=== PATIENT | male | born 1945 ===

== ENCOUNTER 2024-04-08 07:58 | Outpatient (AMB) | payer MEDICARE, SELFPAY ==
--- OUTSIDE RECORDS SUMMARY | 2024-04-08 08:00 | XMS_ITS ---
Author Name [facility] Organization Unknown History of Medication Use Medication Directions Dispensed Refills Start Date End Date Stat lidocaine (PF) 100 mg/5 mL (2 %) injection syringe 01/30/2024 9 active triamcinolone acetonide 40 mg/mL suspension for injection 01/30/2024 9 active nystatin 100,000 unit/gram topical ointment APPLY TO AFFECTED AREA TWICE A DAY 01/30/2024 9 completed indomethacin 25 mg capsule TAKE 1 CAPSULE BY MOUTH THREE TIMES A DAY 01/30/2024 9 active lisinopril (PRINIVIL,ZESTRIL) tablet 10 mg Take 1 tablet (10 mg total) by mouth daily. 09/30/2023 active vitamin C (ASCORBIC ACID) 500 MG tablet Take 1 tablet (500 mg total) by mouth daily. 09/30/2023 active ibuprofen 200 MG tablet Take 2 tablets (400 mg total) by mouth every 6 (six) hours as needed for pain. 09/30/2023 active aspirin EC 81 MG tablet Take 1 tablet (81 mg total) by mouth daily. 09/30/2023 active metoprolol succinate (TOPROL-XL) 24 hr tablet 25 mg TAKE 1 TABLET ONCE A DAY 09/30/2023 active indomethacin (INDOCIN) 25 MG capsule Take 1 capsule (25 mg total) by mouth 3 (three) times a day with meals. 09/30/2023 active tamsulosin (FLOMAX) 0.4 MG CAPS Take 1 capsule (0.4 mg total) by mouth daily. 09/30/2023 active sildenafil (VIAGRA) 100 MG tablet Take 1 tablet (100 mg total) by mouth daily. 09/30/2023 aborted diazePAM (VALIUM) tablet 5 mg Take 1 tablet (5 mg total) by mouth daily as needed for anxiety (1 hour preprocedure, needs chuck wagon driver.). 09/30/2023 active Multiple Vitamins-Minerals (One-A-Day Mens 50+) TABS Take 1 tablet by mouth daily. 09/30/2023 active atorvastatin (LIPITOR) tablet 40 mg Take 1 tablet (40 mg total) by mouth daily. 09/30/2023 active lisinopril 10 mg tablet TAKE 1 TABLET BY MOUTH EVERY DAY (LAST REFILL--PT NEEDS APPOINTMENT PER MD) 08/22/2023 active cephalexin 500 mg capsule TAKE 1 CAPSULE BY MOUTH TWICE A DAY 08/22/2023 active halobetasol propionate 0.05 % topical cream APPLY AFFECTED AREA TWICE A DAY NEEDED. DO NOT USE MORE THAN 14 DAYS AT A TIME 08/22/2023 active amoxicillin 500 mg capsule TAKE 1 CAPSULE BY MOUTH 3 TIMES A DAY UNTIL FINISHED 08/22/2023 active triamcinolone acetonide 40 mg/mL suspension for injection Take 80 mg by injection route. 08/22/2023 active diazepam 5 mg tablet PLEASE SEE ATTACHED FOR DETAILED DIRECTIONS 08/22/2023 active ketoconazole 2 % shampoo PLEASE SEE ATTACHED FOR DETAILED DIRECTIONS 08/22/2023 active hydrocodone 5 mg-acetaminophen 325 mg tablet TAKE 1 TABLET BY MOUTH EVERY 4 TO 6 HOURS NEEDED 08/22/2023 active metoprolol succinate ER 25 mg tablet,extended release 24 hr TAKE 1 TABLET BY MOUTH EVERY DAY (LAST REFILL NEEDS APPT) 08/22/2023 active amoxicillin 875 mg tablet TAKE 1 TABLET BY MOUTH EVERY 12 HOURS UNTIL FINISHED 08/22/2023 active hydrocortisone 2.5 % topical cream with perineal applicator APPLY AFFECTED AREA TWICE A DAY FOR 7 DAYS 08/22/2023 active hydrocortisone acetate 25 mg rectal suppository INSERT 1 SUPPOSITORY TWO TIMES A DAY NEEDED 08/22/2023 active betamethasone valerate 0.1 % topical cream APPLY AFFECTED AREA 3 TIMES A DAY NEEDED FOR RASH 08/22/2023 active atorvastatin 40 mg tablet TAKE 1 TABLET BY MOUTH EVERY DAY 08/22/2023 active sildenafil 100 mg tablet TAKE 1 TABLET BY MOUTH EVERY DAY 08/22/2023 active meloxicam 15 mg tablet TAKE 1 TABLET (15 MG) BY MOUTH EVERY DAY 08/22/2023 active tamsulosin 0.4 mg capsule TAKE 1 CAPSULE BY MOUTH EVERY DAY 08/22/2023 active atorvastatin (LIPITOR) 40 MG tablet Take 1 tablet (40 mg total) by mouth daily. 09/10/2022 active aspirin 81 MG chewable tablet Chew 1 tablet (81 mg total) daily. 09/10/2022 active diazepam (VALIUM) 5 MG tablet Take 1 tablet (5 mg total) by mouth nightly as needed. 11/11/2022 active vitamin E 100 UNIT capsule Take 1 capsule (100 Units total) by mouth daily. 09/10/2022 active Ascorbic Acid (VITAMIN C) 100 MG tablet Take 1 tablet (100 mg total) by mouth daily. 09/10/2022 active Kenalog 40 mg/mL suspension for injection Take 1 mL by injection route. 08/27/2022 active lisinopril (PRINIVIL,ZeSTRIL) 10 MG tablet Take 1 tablet (10 mg total) by mouth daily. 09/10/2022 active tiZANidine (ZANAFLEX) 4 MG tablet Take 1 tablet (4 mg total) by mouth daily. 09/10/2022 active nfrqya-jhqdygkra-pyv nesium sulfates (SUPREP BOWEL PREP KIT) 17.5-3.13-1.6 GM/177ML Solution solution Take two 177 mL bottles as directed 09/10/2022 aborted Ascorbic Acid (VITAMIN C) 100 MG tablet Take 1 tablet (100 mg total) by mouth daily. 09/10/2022 active metoPROLOL SUCCINATE (TOPROL-XL) 25 MG 24 hr tablet Take 1 tablet (25 mg total) by mouth daily. 09/10/2022 active lidocaine (PF) 100 mg/5 mL (2 %) injection syringe Take 2 mL by injection route. 08/27/2022 active multivitamin (multivitamin) Tab tablet Take 1 tablet by mouth daily. 09/10/2022 active tamsulosin (FLOMAX) 0.4 MG capsule Take 1 capsule (0.4 mg total) by mouth daily. 11/11/2022 active Problems Problem Status Onset Date Problem Type Date of Resoluti on Source Osteoarthritis of left knee joint active 2022-08-24 ProblemAct [facility] Pain of bilateral knee joints active 2022-08-24 ProblemAct [facility] Acute medial meniscus tear of left knee active 2017-02-20 ProblemAct [facility] Primary localized osteoarthrosis of left lower leg active 2018-05-21 ProblemAct [facility] Chronic right shoulder pain active 2021-08-18 ProblemAct [facility] Complete tear of left rotator cuff active 2021-08-18 ProblemAct [facility] Claudication active 2022-11-09 ProblemAct [facility] Tobacco use active 2022-11-09 ProblemAct [facility] Hypertension active 2022-11-01 ProblemAct [facility] Takotsubo cardiomyopathy active 2022-11-09 ProblemAct [facility] Osteoarthritis of right knee joint active 2022-08-24 ProblemAct [facility] Inguinal mass active 2014-12-15 ProblemAct [facility] Screening for colon cancer active 2019-02-03 ProblemAct [facility] Primary gonarthrosis, bilateral active 2024-01-28 ProblemAct [facility] High cholesterol active 2022-11-01 ProblemAct [facility] Bilateral iliac artery aneurysm active 2023-02-19 ProblemAct [facility] Dyslipidemia active 2023-02-19 [facility]Act [facility] NSTEMI (non-ST elevated myocardial infarction) active 2022-11-01 [facility]Act [facility]
[2024-04-08 08:08] VITALS: BP 128/72; PULSE 60; TEMP 36.6; O2SAT 96; BMI 23.9
--- NOTE | 2024-04-08 08:08 | AM.OFFWIN_ITS ---
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 Intake Note: pt is here for left foot laceration, possible infection Patient Tobacco Use Status: Current everyday Tobacco user Accompanied by: Self / Same As Patient Allergies No Known Allergies Allergy (Verified 04/08/24 08:15) Do you need a note to return to daycare/school/sports/work: No HPI HPI Comments History of Present Illness Details Patient is a 78yo M who presents for L posterior calf wound Initially injured it three weeks ago after scratching himself when pulling up his socks He said 3 scabs formed Has been getting more red around it No pain at rest, 0/10 + tenderness with palpation + edema in the morning No fever, chills or discharge Using topical neosporin without relief PFSH Social History Patient Tobacco Use Status: Current everyday Tobacco user Review of Systems Const Denies chills and Denies fever(s) Musc Denies back pain, Denies joint swelling and Reports other (L posterior calf pain to palpation over wounds) Skin/Breast Reports erythema and Reports wounds Physical Exam Vital Signs: Last Vital Signs Temp 97.9 F 04/08/24 08:08 Pulse 60 04/08/24 08:08 BP 128/72 04/08/24 08:08 Pulse Ox 96 04/08/24 08:08 Oxygen Delivery Method Room Air 04/08/24 08:08 BMI result Body Mass Index 23.9 General: Non-toxic, NAD. Speaking full sentences. Skin: Warm dry throughout L poterior lower calf has 3 circular scabs withour schar or wound dehiscence. + erythema surrunding without warmth. No drainage. . Respiratory: No respiratory distress MSK: Full ROM extremities. Neurology: Alert. No aphasia or facial droop. Gait without abnormality Psych: Good mood and affect Assessment & Plan Assessment & Plan (1) Cellulitis: Code(s): L03.90 - Cellulitis, unspecified Qualifiers: Laterality: left Site of cellulitis: extremity Site of cellulitis of extremity: lower extremity Qualified Code(s): L03.116 - Cellulitis of left lower limb Plan: Patient seen and evaluated. Keflex with food Discussed wound care Avoid scratching Patient gave verbal understanding and had no additional questions or concerns at time of discharge All questions answered Medications: New cephalexin 500 mg PO BID 14 caps 0RF Coding Level of Care Code New Pt Level 3 (58369) Diagnoses Cellulitis of left lower extremity L03.116 Laterality: left Site of cellulitis: extremity Site of cellulitis of extremity: lower extremity
== END 2024-04-08 08:29 | disposition home or self-care (01) ==
PROVIDERS: Visit Provider Physician Assistant
DX: L03.116 Cellulitis of left lower limb (principal)

== ENCOUNTER → 2024-04-08 07:58 | Outpatient (BNVA) | payer MEDICARE, SELFPAY | PROVIDERS: Visit Provider Physician Assistant | DX: S81.812D Laceration without foreign body, left lower leg, subsequent encounter (principal); L03.116 Cellulitis of left lower limb; X58.XXXD Exposure to other specified factors, subsequent encounter | CPT/HCPCS: 99202 ==

== ENCOUNTER 2025-02-06 08:35 | Outpatient (AMB) | payer MEDICARE, SELFPAY ==
[2025-02-06 08:37] VITALS: BP 158/80; PULSE 62; TEMP 36.3; O2SAT 97; BMI 23.7
--- NOTE | 2025-02-06 08:37 | AM.OFFWIN_ITS ---
Intake Vital Signs 02/06/25 08:37 Height 5 ft 6 in Weight 147 lb BMI 23.7 BP 158/80 H Blood Pressure Location Lt brachial Position Sitting Pulse 62 Pulse Source Pulse Oximeter Temp 97.4 F Temp Source Oral Pulse Oximetry (%) 97 Oxygen Delivery Method Room Air Comment High BP; pt reports not taking his BP meds yet today. Provider notified. Intake Visit Reasons: ep left leg cut and may be infected Intake Note: pt presents with painful and slow healing wound on left lower leg from scraping right shoe 3 wks ago Patient Tobacco Use Status: Current everyday Tobacco user Allergies No Known Allergies Allergy (Verified 02/06/25 08:42) Do you need a note to return to daycare/school/sports/work: No HPI ep left leg cut and may be infected HPI Details This is a 79 year old male patient who presents to the [place] clinic today with a reported infected scrape on his left lower leg. He states this happened about 2-3 weeks ago when the heel of his other shoe scraped the front of his leg. He has been trying to keep area clean and has applied some liquid bandage. He denies any fevers/chills. He reports having some clear drainage from area a couple of days ago, however nothing today. Reports it is sore. [facility] Social History Patient Tobacco Use Status: Current everyday Tobacco user Review of Systems Const All systems reviewed & are unremarkable except as noted in HPI and below Physical Exam Vital Signs: Last Vital Signs Temp 97.4 F 02/06/25 08:37 Pulse 62 02/06/25 08:37 Pulse Ox 97 02/06/25 08:37 Oxygen Delivery Method Room Air 02/06/25 08:37 BMI result Body Mass Index 23.7 Const General: cooperative, healthy appearing, comfortable and no acute distress Resp Effort & Inspection: normal respiratory effort Cardio Rate: regular rate Rhythm: regular rhythm Skin Other: round scab on anterior left lower leg, approx 2x3cm, with surrounding erythema. No drainage noted. tender to palpation. Extrem General: Yes capillary refill normal and Yes no clubbing, cyanosis or edema Psych Appearance: grossly normal Mental Status: mental status grossly normal Speech and movement: Normal speech and movement present Assessment & Plan Assessment & Plan (1) Cellulitis of left anterior lower leg: Code(s): L03.116 - Cellulitis of left lower limb Plan: Started on Cephalexin - has done well on this previously for similar infection. We reviewed indications, use, possible side effects of this. Advised to keep area clean/dry. Advised to return to the clinic if he does not improve with treatment, or if area of begins to have worsening pain, drainage, redness, or if he develops fevers/chills. BP was noted to be elevated today, patient states he has not taken his morning blood pressure medications yet. Advised to take them when he gets home, which he agrees to. All questions were answered and patient verbalizes understanding and agrees to plan as discussed today. Medications: Refilled cephalexin 500 mg PO BID 14 caps 0RF L03.116 - Cellulitis of left lower limb Coding Level of Care Code Est Pt Level 4 (30119) Diagnoses Cellulitis of left anterior lower leg L03.116
--- OUTSIDE RECORDS SUMMARY | 2025-02-06 09:07 | XMS_ITS | Encounter Summary ---
Author Organization [facility] Address [address] [place] [id number] Care Team Providers Care Timing Inspector Name Role Phone Abebe Johnson MD Primary Care Provider Nettie Aponte PA-C Primary Care Provi alex Jemal Kramer MD Unavailable [phone] Encounter Details Date Type Department Care Team ([facility] st Contact Info) Description 03/01/2023 Scanned Document [facility] [place] [address] [id number] Jemal Kramer MD [address] [place] [id number] Social History Tobacco Use Types Packs/Day Years Used Date Smoking Tobacco: Every Day Smokeless Tobacco: Never Alcohol Use Standard Drinks/Week Comments Yes 6 (1 standard drink = 0.6 oz pur e alcohol) Sex and Gender Information Value Date Recorded Sex Assigned at Not on file Legal Sex Male 7:52 PM EDT Gender Identity Not on file Sexual Orientation Not on file documented as of this encounter Plan of Treatment Not on file documented as of this encounter Visit Diagnoses Not on filedocumented in this encounter Care Teams Timing Inspector Relationship Specialty Start Date End Date Abebe Johnson MD [address] [place] [id number] PCP - General 10/24/18 07/02/24 Nettie Aponte PA-C [address] [place] [address] PCP - General Internal Medicine 07/03/24 Jemal Kramer MD [address] [place] [address] Consulting Provider Cardiovascular Disease 09/19/24 documented as of this encounter
--- OUTSIDE RECORDS SUMMARY | 2025-02-06 09:07 | XMS_ITS | Encounter Summary ---
Author Organization [facility] Address [address] [place] [address] Care Team Providers Care Media Relations Specialist Name Role Phone Abebe Johnson MD Primary Care Provider Nettie Aponte PA-C Primary Care Provi alex Jemal Kramer MD Unavailable [phone] Encounter Details Date Type Department Care Team (Late st Contact Info) Description 03/08/2023 Scanned Document [facility] [place] [address] [id number] Provider, MD [address] [place] [address] Social History Tobacco Use Types Packs/Day Years [...] on filedocumented in this encounter Care Teams Media Relations Specialist Relationship Specialty Start Date End Date Abebe Johnson MD [address] [place] [address] PCP - General 10/24/18 07/02/24 Nettie Aponte PA-C [address] [place] [address] PCP - General Internal Medicine 07/03/24 Jemal Kramer MD [address] [place] [id number] Consulting Provider Cardiovascular Disease 09/19/24 documented as of this encounter
--- OUTSIDE RECORDS SUMMARY | 2025-02-06 09:07 | XMS_ITS | Clinical Summary ---
Author Organization [facility] Address [address] [place] [address] Care Team Providers Care Diagnostic Radiologist Name Role Phone Abebe Johnson MD Primary Care Provider [phone] Allergies No known active allergies Medications Medication Sig Dispensed Refills Start Date End Date Status vitamin C (ASCORBIC ACID) 500 MG tablet Take 1 tablet (500 mg total) by mouth daily. 0 Active lisinopril (PRINIVIL,ZESTRIL) tablet 10 mg Take 1 tablet (10 mg total) by mouth daily. 0 Active metoprolol succinate (TOPROL-XL) 24 hr tablet 25 mg TAKE 1 TABLET ONCE A DAY 2 03/31/2016 Active atorvastatin (LIPITOR) tablet 40 mg Take 1 tablet (40 mg total) by mouth daily. 0 06/20/2017 Active aspirin EC 81 MG tablet Take 1 tablet (81 mg total) by mouth daily. 0 Active ibuprofen 200 MG tablet Take 2 tablets (400 mg total) by mouth every 6 (six) hours as needed for pain. 0 Active tamsulosin (FLOMAX) 0.4 MG CAPSIndications:Benig n Prostatic Hypertrophy Take 1 capsule (0.4 mg total) by mouth daily. 0 Active diazePAM (VALIUM) tablet 5 mg Take 1 tablet (5 mg total) by mouth daily as needed for anxiety (1 hour preprocedure, needs tow bar driver.). 6 tablet 0 08/25/2022 Active Multiple Vitamins-Minerals (One-A-Day Mens 50+) TABS Take 1 tablet by mouth daily. 0 Active indomethacin (INDOCIN) 25 MG capsule Take 1 capsule (25 mg total) by mouth 3 (three) times a day with meals. 0 Active sildenafil (VIAGRA) 100 MG tablet TAKE 1 TABLET BY MOUTH EVERY DAY 10 tablet 1 01/17/2024 Active Hospital, Clinic, or Other Facility Administered Medication Ordered Dose Route Frequency Start Date End Date Status methylPREDNISolone acetate (DEPO-Medrol) injection 40 mgIndications:Localized osteoarthritis of right knee 40 mg IX Once 07/14/2021 Active Active Problems Problem Noted Date Diagnosed Date Complete tear of left rotator cuff 08/18/2021 Chronic right shoulder pain 08/18/2021 Primary localized osteoarthrosis of left lower l eg 05/21/2018 Localized osteoarthritis of left knee 02/20/2017 Acute medial meniscus tear of left knee 02/21/20 17 Inguinal mass 12/15/2014 Family History Medical History Relation Name Comments Leukemia Father Heart disease Mother Relation Name Status Comments Father Mother Social History Tobacco Use Types Packs/Day Years Used Date Smoking Tobacco: Every Day Cigarettes 0.5 Smokeless Tobacco: Never Tobacco Cessation:Ready to Q uit: Not Asked; Counseling Given: Not Answered Alcohol Use Standard Drinks/Week Comments Yes 5 (1 standard drink = 0.6 oz pur e alcohol) Sex and Gender Information Value Date Recorded Sex Assigned at Male 06/27/2018 10:41 AM EDT Gender Identity Male 06/09/2021 2:51 PM EST Sexual Orientation Not on file Job Start Date Occupation Industry Not on file Not on file Not on file Last Filed Vital Signs Vital Sign Reading Time Taken Comments Blood Pressure 119/56 09/28/2023 8:20 AM EDT Pulse 51 09/28/2023 8:20 AM EDT Temperature 36 C (96.8 F) 09/28/2023 8:20 AM EDT Respiratory Rate 18 09/28/2023 8:20 AM EDT Oxygen Saturation 100% 09/28/2023 8:20 AM EDT Inhaled Oxygen Concentration - - Weight 63.5 kg (140 lb) 09/28/2023 7:00 AM EDT Height 167.6 cm (5' 6 ) 09/28/2023 7:00 AM EDT Body Mass Index 22.6 09/28/2023 7:00 AM EDT Plan of Treatment Health Maintenance Due Date Last Done Comments Hepatitis C Screening 1945 COVID-19 Vaccine (#1) 05/25/1946 Pneumococcal Vaccine (1 of 2 - PCV) 1952 Depression Screening 1958 Preventative Health Evaluation 1964 Tobacco Cessation Counseling 1964 DTap / Tdap / Td (1 - Tdap) 1965 Shingrix-Zoster Vaccine (1 of 2) 1996 Fall Risk Assessment 11/23/2011 RSV Adult > 60+ Yrs or Pregn ant (1 - 1-dose 75+ series) 2021 Influenza Vaccine (#1) 2024 Hepatitis B Vaccines Aged Out No long er eligible based on patient's age to complete this topic RSV Ped < 20 months Aged Out No longe r eligible based on patient's age to complete this topic Medical Devices Implanted Type Area Farm Management Agent Device Identifier Shelf Expiration Date Model / Serial / Lot Mesh 3d Max 4.3x6.3 Rt Lrg Dimensional Prefrm Rt Ster No Crba-Davl [id number] - [id number] Implanted:Qty: 1 on 11/25/2021 by Kevon Feliz MD at [facility] Location Mesh Right: Inguinal CR BARD - DAVOL DIV 09/27/2025 [id number] / / [id number] Advance Directives For more information, please contact: [phone] Documents on File Type Date Recorded Patient Pre Certification Specialist Expl anation Advance Directive and Living Will 06/27/2018 8:13 AM Latest Code Status on File Code Status Date Activated Date Inactivated Comments Full Code 11/25/2021 10:27 AM 11/25/2021 8:23 PM This code status was ascertained in the following way: discussion with patient . Care Teams Diagnostic Radiologist Relationship Specialty Start Date End Date Abebe Johnson MD [address] [place] [address] PCP - General Internal Medicine 02/04/14
--- OUTSIDE RECORDS SUMMARY | 2025-02-06 09:07 | XMS_ITS | Clinical Summary ---
Author Organization Formerly [facility] Address [address] [place] [address] Care Team Providers Care Roller Gold Leaf Name Role Phone Nettie Aponte PA-C Primary Care Provi alex Jemal Kramer MD Unavailable Allergies No known active allergies Medications lisinopril (PRINIVIL,ZeSTRIL ) 10 MG tablet Take 1 tablet (10 mg total) by mouth daily. 2 9 Active multivitamin (multivitamin) Tab tablet Take 1 tablet by mouth daily. Active Ascorbic Acid (VITAMIN C) 100 MG tablet Take 1 tablet (100 mg total) by mouth daily. Active aspirin 81 MG chewable tablet Chew 1 tablet (81 mg total) daily. Active diazepam (VALIUM) 5 MG tablet Take 1 tablet (5 mg total) by mouth nightly as needed. 3 Active tamsulosin (FLOMAX) 0.4 MG capsule Take 1 capsule (0.4 mg total) by mouth daily. Active sildenafil (VIAGRA) 100 MG tablet Take 1 tablet (100 mg total) by mouth daily as needed for erectile dysfunction. Active metoPROLOL SUCCINATE (TOPROL-XL) 25 MG 24 hr tabletIndications :Primary hypertension Take 1 tablet (25 mg total) by mouth daily. 90 tablet 3 5 Active atorvastatin (LIPITOR) 40 MG tabletIndications :Dyslipidemia Take 1 tablet (40 mg total) by mouth daily. 90 tablet 3 5 Active Active Problems Problem Noted Date Diagnosed Date IFG (impaired fasting glucose) 07/03/2024 Erectile dysfunction 07/03/2024 History of kidney stones 07/03/2024 Dyslipidemia 02/19/2023 Bilateral iliac artery aneurysm 02/19/2023 Tobacco use 11/09/2022 Takotsubo cardiomyopathy 11/09/2022 PVD (peripheral vascular disease) 11/09/2022 Hypertension 11/01/2022 NSTEMI (non-ST elevated myocardial infarction) 0 11/01/2022 Chronic right shoulder pain 08/18/2021 Complete tear of left rotator cuff 08/18/2021 Localized osteoarthritis of left knee 02/20/2017 Resolved Problems Problem Noted Date Diagnosed Date Resolved Date High cholesterol 11/01/2022 07/03/2024 Screening for colon cancer 02/03/2019 0 07/03/2024 Assessment & Plan (02/03/2019 1:24 PM EST): A colonoscopy will be scheduled based on current indication. The indications, prep, alternatives and the procedure were thoroughly explained. There is no contraindication to colonoscopy. All questions were answered. The potential risks including but not limited to bleeding, infection, and perforation were also explained. Adenoma carcinoma sequence discussed Primary localized osteoarthr osis of left lower leg 05/21/2018 07/03/2024 Acute medial meniscus tear of left knee 02/20/2017 07/03/2024 Inguinal mass 12/15/2014 07/03/2024 Immunizations Immunization Administration Dates Next Due Tdap 01/16/2012 Family History Medical History Relation Name Comments Leukemia Father Relation Name Status Comments Father Social History Tobacco Use Types Packs/Day Years Used Date Smoking Tobacco: Every Day Smokeless Tobacco: Never Tobacco Cessation:Ready to Q uit: Not Asked; Counseling Given: Not Answered Alcohol Use Standard Drinks/Week Comments Yes 6 (1 standard drink = 0.6 oz pur e alcohol) PHQ-2 Answer Date Recorded PHQ-2 Total Score 0 07/03/2024 Sex and Gender Information Value Date Recorded Sex Assigned at Not on file Legal Sex Male 7:52 PM EDT Gender Identity Not on file Sexual Orientation Not on file Last Filed Vital Signs Vital Sign Reading Time Taken Comments Blood Pressure 106/60 07/03/2024 11:26 AM EDT Pulse 68 07/03/2024 11:26 AM EDT Temperature 36.5 C (97.7 F) 07/03/2024 11:26 AM EDT Respiratory Rate 17 07/03/2024 11:2 6 AM EDT Oxygen Saturation - - Inhaled Oxygen Concentration - - Weight 66.1 kg (145 lb 12.8 oz) 025 11:26 AM EDT Height 167.6 cm (5' 6 ) 07/03/2024 11:2 6 AM EDT Body Mass Index 23.53 07/03/2024 11:26 AM EDT Plan of Treatment Health Maintenance Due Date Last Done Comments Advance Care Planning 1945 Hepatitis C Virus Screening 1945 Annual Wellness Visit 1964 Physical 1964 Pneumococcal Vaccines 50+ (1 of 2 - PCV) 1965 Zoster (Shingles) Vaccine (1 of 2) 1996 RSV Vaccine 50 years and old er and Patients (1 - 1-dose 75+ series) 2021 DTaP/Tdap/Td Vaccines (2 - T d or Tdap) 01/15/2022 01/16/2012 Influenza Vaccine 10/31/2024 COVID-19 Vaccine ( - 2023-2 5 season) 2024 Hepatitis B Vaccines Aged Out No long er eligible based on patient's age to complete this topic Insurance MEDICARE PART A & B [place] [id number] MEDICARE PART A & B Care Teams Roller Gold Leaf Relationship Specialty Start Date End Date Nettie Aponte PA-C [address] [place] [address] PCP - General Internal Medicine 07/03/24 Jemal Kramer MD [address] [place] [id number] Consulting Provider Cardiovascular Disease 09/19/24
--- OUTSIDE RECORDS SUMMARY | 2025-02-06 09:07 | XMS_ITS | Data Portability ---
Author Organization [facility] [employer] [id number] Address [address] [facility] [address] [place] [address] Care Team Providers Care Coater Operator Insulation Board Name Role Phone ODELL MALAVE Primary Care Provider Assessment Encounter Date Assessment Date Assessment LastModified by Organization Details LastModified Time 02/01/2024 02/01/2024 Bilateral SIJI I spent 29 minutes reviewing the record and interviewing the pt. 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 I will schedule the patient for bilateral SI joint injections. [email or web address] Not available 10/23/2024 11:15:13 Plan of Treatment Reminders Order Date Submit Date Provider Last Modified By Organization Details Last Modified Time Details Appointments None record ed. Lab None record ed. Referral None record ed. Procedures None record ed. Surgeries None record ed. Imaging None record ed. Medication Orders None record ed. Patient TargetsNo targets recorded. Patient InstructionsNo instructions recorded. Reason for Referral None Reported. Problems Name Problem SNOMED Code Status Onset Date Resolution Date Notes Provider Name and Address Organization Details Recorded Time Acute tear of medial meniscus of left knee [id number] 005257 Active 2016 Acute medial meniscus tear of left knee; XXU9Cuxpa iption: Acute medial meniscus tear of left knee; IAK49Wlyn ription: Acute medial meniscus tear of left knee; Not Available [employer] 09:52:27 Localized , primary osteoarth ritis 430198389 Active 2018 Primary localized osteoarth rosis of left lower leg; SBP4Fgkzw iption: Primary localized osteoarth rosis of left lower leg; TZA15Xsmt ription: Primary localized osteoarth rosis of left lower leg; dlname: Jrody; dfname: Jun; Physician _Suffix: ; Physician _Phone: tel: [phone]; Physician _Fax: fax:[phone]; Physician _Specialt y: Orthopedi cs; Physician _Addr1: [address]; Physician _Addr2: [address]; Physician _City: [place]; Physician _State: [place]; Physician _PostalCo de: [id number]; Not Available [facility] 5 09:52:27 Full thickness rotator cuff tear 254213554 Active 2021 Complete tear of left rotator cuff; BKW6Hwjzm iption: Complete tear of left rotator cuff; WUZ50Lwzi ription: Complete tear of left rotator cuff; dlname: Jovita; dfname: Antwan; Physician _Suffix: YEHUDA; Not Available [facility] 5 09:52:27 Chronic pain of right upper limb 39386887525 296265 Active 2021 Chronic right shoulder pain; QZK5Pitwy iption: Chronic right shoulder pain; APW77Wswb ription: Chronic right shoulder pain; Not Available [facility] 5 09:52:27 Groin mass 045684852 Active 2023 Tammy lagunas, [facility] 4 12:11:52 Osteoarth ritis of left knee joint 45213463340 9109 Active 2023 Tammy Miller null, [facility] 4 12:18:06 Tear of medial meniscus of knee 590703676 Active 2023 Tammy Miller null, [facility] 4 12:18:34 Pain of shoulder region 79967405 Active 2023 Tammy Miller null, [facility] 4 12:19:02 Rupture of rotator cuff of shoulder 988470130 Active 2023 left Tammy lagunas, [facility] 4 12:21:16 Problem Notes None recorded. Procedures Surgical History None recorded. Imaging Results None recorded. Procedure Notes Documentation Provider Name and Address Organization Details Recorded Time See Note [facility], a member of [employer] Patient Name: ALBANIA HERR Date of : 1945 Reason for Exam: pain clinic Exam Date: 05/09/2024 [id number] EST Report Status: Final Ordering Provider: JORGITO CONNOLLY PCP: ODELL MALAVE This order has been auto-finalized and does not contain a result. Tammy lagunas, [facility] 05/09/2024 14:22:59 Medical Equipment None Reported. Allergies Allergen ID Allergen Name Allergen Category Reaction Reaction Severity Criticality Documentation Date Start Date Code Code System Note Provider Name and Address Organization Details Recorded Time [address] No Allergy Informati on Available Not available Not available Not available Not available 05/13/2024 Comme nt: dfnam e: Jorgito; cornell t: A; dlnam e: Ofelia er; Physi cian_ Addr1 : [address]; Physi cian_ Addr2 : [facility] ; Physi cian_ City: [facility] ord; Physi cian_ State : [place]; Physi cian_ Posta lCode : [address] ; Physi cian_ Phone : tel:[phone]; Physi cian_ Fax: fax:[phone]; NPI: [id number] ; Physi cian_ Suffi x: ; Physi cian_ Speci alty: [employer]; ; Not Available [facility] 5 16:50:59 Medications Name Sig Start Date Stop Date Status Note LastModified by Organization Details LastModified Time atorvastat in 40 mg tablet TAKE 1 TABLET BY MOUTH EVERY DAY active Not Available Not Available No t Available ketoconazo le 2 % shampoo PLEASE SEE ATTACHED FOR DETAILED DIRECTION S active Not Available Not Available No t Available Vitamin C 500 mg tablet Take by oral route. active Not Available Not Available No t Available nystatin 100,000 unit/gram topical ointment APPLY TO AFFECTED AREA TWICE A DAY active Not Available Not Available No t Available hydrocodon e 5 mg-acetami nophen 325 mg tablet TAKE 1 TABLET BY MOUTH EVERY 4 TO 6 HOURS NEEDED active Not Available Not Available No t Available meloxicam 15 mg tablet TAKE 1 TABLET (15 MG) BY MOUTH EVERY DAY active Not Available Not Available No t Available aspirin 81 mg tablet,del ayed release Take 1 tablet (81 mg total) by mouth daily. active NPI: [id number] 2; Not Available Not Available Not Available sildenafil 100 mg tablet 1 po qod prn 2024 active Not Available Not Available Not Avai lable hydrocorti sone acetate 25 mg rectal suppositor y INSERT 1 SUPPOSITO RY TWICE DAILY NEEDED RECTAL PAIN active Not Available Not Available No t Available hydrocorti sone 2.5 % topical cream with perineal applicator APPLY AFFECTED AREA TWICE A DAY FOR 7 DAYS active Not Available Not Available No t Available amoxicilli n 875 mg tablet TAKE 1 TABLET BY MOUTH EVERY 12 HOURS UNTIL FINISHED active Not Available Not Available No t Available tamsulosin 0.4 mg capsule TAKE 1 CAPSULE BY MOUTH EVERY DAY active Not Available Not Available No t Available betamethas one valerate 0.1 % topical cream APPLY AFFECTED AREA 3 TIMES A DAY NEEDED FOR RASH active Not Available Not Available No t Available Valium 5 mg tablet Take 1 tablet twice a day by oral route. active Not Available Not Available No t Available cephalexin 500 mg capsule TAKE 1 CAPSULE BY MOUTH TWICE A DAY active Not Available Not Available No t Available methylpred nisolone acetate 40 mg/mL suspension for injection Take by injection route. active Not Available Not Available No t Available lisinopril 10 mg tablet TAKE 1 TABLET BY MOUTH EVERY DAY active Not Available Not Available No t Available indomethac in 25 mg capsule Take 1 capsule (25 mg total) by mouth 3 (three) times a day with meals. active Not Available Not Available No t Available ascorbic acid (vitamin C) 500 mg chewable tablet Take 1 tablet (500 mg total) by mouth daily. active dfname: Historica l; dlname: Provider; Physician _Addr1: [address]; Physician _City: [place]; Physician _State: [place]; Physician _PostalCo de: [id number]; NPI: [id number]; Physician _Suffix: MD; Physician _Phone: tel:[phone]; Not Available Not Available Not Available ibuprofen 200 mg tablet Take 1 tablet every 6 hours by oral route. active Not Available Not Available No t Available metoprolol succinate ER 25 mg tablet,ext ended release 24 hr TAKE 1 TABLET BY MOUTH EVERY DAY active Not Available Not Available No t Available metoprolol succinate ER 25 mg capsule sprinkle, ext. release 24 hr Take 1 capsule every day by oral route. active Not Available Not Available No t Available One-A-Day Men's 50 Plus active Not Available Not Available Not Available Vitals None Recorded Social History None recorded. Functional Status Question Answer Note LastModified by Organizat ion Details LastModified Time What is your level of alcohol consumption? Occasional [email or web address] Information not available 06/10/2024 Mental Status None recorded. Family History Relationship Description Onset Age of this Age Resolved Age Notes LastModified by Organization Details LastModified Time Mother Heart disease Heart diseas e; Member s: Mother Not available 06/10/2024 03:42:50 Father Leukemia Leukem ia; Member s: Father Not available 06/10/2024 03:42:50 Medical History Condition Response Hernia Y Coronary Artery Disease Y Kidney Stones Y Ear or Hearing Problems Y Back Injury Y Past Encounters Encounter ID Performer Location Encounter Start Date Encounter Closed Date Diagnosis/Indication Diagnosis SNOMED-CT Code Diagnosis ICD10 Code Diagnosis IMO Codes Diagnosis Note [id number] Jorgito Connolly MD [id number] A_[facility] [address] [place] [address] 02/01/2024 08:36:15 02/01/2024 10:14:36 Bilateral sacroiliac joint pain [id number] 1540853 M53.3 [id number] Jorgito Connolly MD [id number] A_[facility] d [address] [place] [address] 09/08/2024 07:31:02 09/13/2024 07:41:45 [id number] MD VINAY Shine017_WA A_[place] [address] [address] 10/23/2024 07:02:49 10/23/2024 11:16:56 Bilateral sacroiliitis 8747080015 M46.1 [id number] Health Concerns Section Related Observation LastModified by Organization Detai ls LastModified Time None Recorded Concern Status LastModified by Organization Details LastModified Time None Recorded Advance Directives Directive None Recorded Payers Insurance Date Sequence Insurance Name Policy Number Policy Field Covered Member ID Field Member ID Guarantor Name 01/05/2025 2 [place] [id number] [place] Herr [id number] [place] 01/06/2025 1 [place] Herr [id number] [place] 10/02/2024 2 [place]) [id number] [place] Herr [id number] [place] Herr Notes Date Note Type Note Provider Name and Address Organization Details Recorded Time 02/01/2024 text/html Back PainReporte d by PatientHPIFor location, patient reportsradiation to buttocks bilateralbut reportslumbar bilateral. For quality, patient reportssharp.ROS as noted in the HPI MD janneth Shine, [facility] 02/11/2024 07:36:52 10/23/2024 text/html ROS as noted in the HPI This is a medically necessary visit. The patient would typically be seen in the office. The patient verbally agreed to a virtual phone visit in place of a physical appointment. The patient was informed that provider would take precautions to ensure privacy of PHI as much as possible. The patient was informed that they can opt out or refuse services at anytime. A total of 18 minutes was spent reviewing the record and on the phone with the patient. Visit included: - substantial medical advice- revising treatment plan- prescribing/revising medications, if prescribed.- providing self-care/patient education information for new and/or chronic health problem. I spoke with the patient on the phone. He tells me he continues to have right greater than left SI joint pain. He uses Aspercreme as needed. He takes an occasional Advil as well. He has had good pain relief in the past with SI joint injections and would like to proceed with further injection therapy. His pain is 6 out of 10 at its worst and 2 out of 10 at its least. MD janneth Shine, [facility] 10/23/2024 11:15:54
--- OUTSIDE RECORDS SUMMARY | 2025-02-06 09:07 | XMS_ITS ---
Author Name [facility] Organization Unknown Results Test Name/Text Value Interpretation Date Range Source Prot Ur Ql Strip TRACE Abnormal 10/01/2024 - [facility] CaOx Cry #/area UrnS HPF MANY Abnormal 10/01/2024 - [facility] Hyaline Casts #/area UrnS LPF NONE SEEN Normal 10/01/2024 - [facility] WBC #/area UrnS HPF NONE SEEN Normal 10/01/2024 - [facility] Appearance Ur CLEAR Normal 10/01/2024 - [facility] RBC #/area UrnS HPF 0-2 Normal 10/01/2024 - [facility] Ketones Ur Ql Strip TRACE Abnormal 10/01/2024 - [facility] Glucose Ur Ql Strip NEGATIVE Normal 10/01/2024 - [facility] Nitrite Ur Ql Strip NEGATIVE Normal 10/01/2024 - [facility] Service Cmnt-Imp 10/01/2024 [facility] Squamous #/area UrnS HPF NONE SEEN Normal 10/01/2024 - [facility] Bacteria #/area UrnS HPF NONE SEEN Normal 10/01/2024 - [facility] Leukocyte esterase Ur Ql Strip TRACE Abnormal 10/01/2024 - [facility] Hgb Ur Ql Strip NEGATIVE Normal 10/01/2024 - [facility] Bilirub Ur Ql Strip NEGATIVE Normal 10/01/2024 - [facility] Sp Gr Ur Strip 1.026 Normal 10/01/2024 1.001 - 1.035 [facility] pH Ur Strip 5.5 Normal 10/01/2024 5 - 8 [facility] Color Ur DARK YELLOW Normal 10/01/2024 - [facility] HbA1c MFr Bld 5.6 % Normal 10/01/2024 - 5.7 [facility] RBC Auto 98.3 fL Normal 10/01/2024 80 - 100 [facility] MCHC RBC Auto-EntMCnc 32.8 g/dL Normal 10/01/2024 32 - 36 [facility] Eosinophil # Bld Auto 97.0 cells/uL Normal 10/01/2024 15 - 500 [facility] Neutrophils NFr Bld Auto 62.0 % Normal 10/01/2024 [facility] WBC # Bld Auto 9.7 Thousand/uL Normal 10/01/2024 3.8 - 10 .8 [facility] Platelet # Bld Auto 249.0 Thousand/uL Normal 10/01/2024 140 - 400 [facility] MCH RBC Qn Auto 32.3 pg Normal 10/01/2024 27 - [address] Hgb Bld-mCnc 13.2 g/dL Normal 10/01/2024 13.2 - 17.1 [facility] Monocytes # Bld Auto 679.0 cells/uL Normal 10/01/2024 200 - 950 [facility] Hct VFr Bld Auto 40.2 % Normal 10/01/2024 38.5 - 50 [facility] Lymphocytes NFr Bld Auto 30.0 % Normal 10/01/2024 [facility] PMV Bld Erik-Aniya 9.4 fL Normal 10/01/2024 7.5 - 12.5 [facility] NOTE 10/01/2024 [facility] Neutrophils # Bld Auto 6014.0 cells/uL Normal 10/01/2024 1500 - 7800 [facility] RDW RBC Auto 12.6 % Normal 10/01/2024 11 - 15 [facility] Basophils # Bld Auto 0.0 cells/uL Normal 10/01/2024 0 - 2 00 [facility] Monocytes NFr Bld Auto 7.0 % Normal 10/01/2024 [facility] RBC # Bld Auto 4.09 Million/uL Below low normal 10/01/2024 4 .2 - 5.8 [facility] Lymphocytes # Bld Manual 2910.0 cells/uL Normal 10/01/2024 850 - 3900 [facility] Eosinophil NFr Bld Auto 1.0 % Normal 10/01/2024 [facility] Basophils NFr Bld Auto 0.0 % Normal 10/01/2024 [facility] Potassium SerPl-sCnc 4.1 mmol/L Normal 10/01/2024 3.5 - 5 .3 [facility] Globulin Ser Calc-mCnc 1.8 g/dL (calc) Below low normal 10/01/2024 1.9 - 3.7 [facility] BUN SerPl-mCnc 26.0 mg/dL Above high normal 10/01/2024 7 - 2 5 [facility] ALT SerPl-cCnc 19.0 U/L Normal 10/01/2024 9 - 46 [facility] Calcium SerPl-mCnc 8.9 mg/dL Normal 10/01/2024 8.6 - 10.3 [facility] Chloride SerPl-sCnc 109.0 mmol/L Normal 10/01/2024 98 - 1 10 [facility] Sodium SerPl-sCnc 140.0 mmol/L Normal 10/01/2024 135 - 14 6 [facility] Albumin SerPl-mCnc 4.2 g/dL Normal 10/01/2024 3.6 - 5.1 [facility] CO2 SerPl-sCnc 23.0 mmol/L Normal 10/01/2024 20 - 32 [facility] EST eGFRcr SerPlBld CKD-EPI 2020 92.0 mL/min/1.73m2 Normal 10/01/2024 - [facility] BUN/Creat SerPl 34.0 (calc) Above high normal 10/01/2024 6 - 22 [facility] Albumin/Glob SerPl 2.3 (calc) Normal 10/01/2024 1 - 2.5 [facility] ALP SerPl-cCnc 38.0 U/L Normal 10/01/2024 35 - 144 [facility] AST SerPl-cCnc 16.0 U/L Normal 10/01/2024 10 - 35 [facility] Bilirub SerPl-mCnc 0.9 mg/dL Normal 10/01/2024 0.2 - 1.2 [facility] Creat SerPl-mCnc 0.77 mg/dL Normal 10/01/2024 0.7 - 1.28 [facility] Glucose SerPl-mCnc 105.0 mg/dL Above high normal 10/01/2024 65 - 99 [facility] Prot SerPl-mCnc 6.0 g/dL Below low normal 10/01/2024 6.1 - 8.1 [facility] Cholest SerPl-mCnc 121.0 mg/dL Normal 10/01/2024 - 200 [facility] NonHDLc SerPl-mCnc 64.0 mg/dL (calc) Normal 10/01/2024 - 130 [facility] HDLc SerPl-mCnc 57.0 mg/dL Normal 10/01/2024 - [facility] EST LDLc SerPl Calc-mCnc 51.0 mg/dL (calc) Normal 10/01/2024 [facility] Cholest/HDLc SerPl 2.1 (calc) Normal 10/01/2024 - 5 [facility] Trigl SerPl-mCnc 53.0 mg/dL Normal 10/01/2024 - 150 Q [facility] PSA SerPl-mCnc 0.5 ng/mL Normal 10/01/2024 - [facility] T TSH SerPl-aCnc 1.4 mIU/L Normal 10/01/2024 0.4 - 4.5 [facility] Urate SerPl-mCnc 5.5 mg/dL Normal 10/01/2024 4 - 8 [facility] EST History of Medication Use Medication Directions Dispensed Refills Start Date End Date Status triamcinolone acetonide 40 mg/mL suspension for injection Take 80 mg by injection route. 4 active sildenafil (VIAGRA) 100 MG tablet Take 1 tablet (100 mg total) by mouth daily. 4 09/28/19 24 aborted diazepam (VALIUM) 5 MG tablet Take 1 tablet (5 mg total) by mouth nightly as needed. 3 active diazePAM (VALIUM) 5 mg tablet Take 1 tablet (5 mg total) by mouth every 6 (six) hours if needed. 3 active diazePAM (VALIUM) tablet 5 mg Take 1 tablet (5 mg total) by mouth daily as needed for anxiety (1 hour preprocedure, needs rivet driver.). 3 active Kenalog 40 mg/mL suspension for injection Take 1 mL by injection route. 3 active lidocaine (PF) 100 mg/5 mL (2 %) injection syringe Take 8 mL by injection route. 3 active tiZANidine (ZANAFLEX) 4 MG tablet Take 1 tablet (4 mg total) by mouth daily. 0 active csyfvw-wqgzmqvhd-zmexuv ium sulfates (SUPREP BOWEL PREP KIT) 17.5-3.13-1.6 GM/177ML Solution solution Take two 177 mL bottles as directed 9 11/10/19 23 active metoPROLOL SUCCINATE (TOPROL-XL) 25 MG 24 hr tablet Take 1 tablet (25 mg total) by mouth daily. 9 active lisinopril (PRINIVIL,ZeSTRIL) 10 MG tablet Take 1 tablet (10 mg total) by mouth daily. 9 active atorvastatin (LIPITOR) 40 mg tablet Take 1 tablet (40 mg total) by mouth 1 (one) time each day. 8 active atorvastatin (LIPITOR) tablet 40 mg Take 1 tablet (40 mg total) by mouth daily. 8 active metoprolol succinate (TOPROL-XL) 24 hr tablet 25 mg TAKE 1 TABLET ONCE A DAY 6 active metoprolol succinate (TOPROL-XL) 25 mg 24 hr tablet Take 1 tablet (25 mg total) by mouth 1 (one) time each day. 6 active indomethacin (INDOCIN) 25 mg capsule Take 1 capsule (25 mg total) by mouth 3 (three) times a day with meals. 05/01/19 25 aborted amoxicillin 500 mg capsule TAKE 1 CAPSULE BY MOUTH 3 TIMES A DAY UNTIL FINISHED 01/28/20 24 completed amoxicillin 875 mg tablet TAKE 1 TABLET BY MOUTH EVERY 12 HOURS UNTIL FINISHED 01/28/20 24 active betamethasone valerate 0.1 % topical cream APPLY AFFECTED AREA 3 TIMES A DAY NEEDED FOR RASH 01/28/20 active diazepam 5 mg tablet PLEASE SEE ATTACHED FOR DETAILED DIRECTIONS 01/28/20 24 completed hydrocodone 5 mg-acetaminophen 325 mg tablet TAKE 1 TABLET BY MOUTH EVERY 4 TO 6 HOURS NEEDED 01/28/20 24 completed hydrocortisone 2.5 % topical cream with perineal applicator APPLY AFFECTED AREA TWICE A DAY FOR 7 DAYS 01/28/20 24 active hydrocortisone acetate 25 mg rectal suppository INSERT 1 SUPPOSITORY TWO TIMES A DAY NEEDED 01/28/20 24 active ketoconazole 2 % shampoo PLEASE SEE ATTACHED FOR DETAILED DIRECTIONS 01/28/20 24 completed meloxicam 15 mg tablet TAKE 1 TABLET (15 MG) BY MOUTH EVERY DAY 01/28/20 24 active metoprolol succinate ER 25 mg tablet,extended release 24 hr TAKE 1 TABLET BY MOUTH EVERY DAY 01/28/20 24 completed nystatin 100,000 unit/gram topical ointment APPLY TO AFFECTED AREA TWICE A DAY 01/28/20 24 completed lidocaine (PF) 100 mg/5 mL (2 %) injection syringe active triamcinolone acetonide 40 mg/mL suspension for injection active amoxicillin 875 mg tablet TAKE 1 TABLET BY MOUTH EVERY 12 HOURS UNTIL FINISHED active ascorbic acid (vitamin C) 500 mg chewable tablet Take 1 tablet (500 mg total) by mouth daily. active aspirin 81 mg tablet,delayed release Take 1 tablet (81 mg total) by mouth daily. active atorvastatin 40 mg tablet TAKE 1 TABLET BY MOUTH EVERY DAY active atorvastatin 40 mg tablet TAKE 1 TABLET BY MOUTH EVERY DAY active betamethasone valerate 0.1 % topical cream APPLY AFFECTED AREA 3 TIMES A DAY NEEDED FOR RASH active cephalexin 500 mg capsule TAKE 1 CAPSULE BY MOUTH TWICE A DAY active cephalexin 500 mg capsule TAKE 1 CAPSULE BY MOUTH TWICE A DAY active halobetasol propionate 0.05 % topical cream APPLY AFFECTED AREA TWICE A DAY NEEDED. DO NOT USE MORE THAN 14 DAYS AT A TIME active hydrocodone 5 mg-acetaminophen 325 mg tablet TAKE 1 TABLET BY MOUTH EVERY 4 TO 6 HOURS NEEDED active hydrocortisone 2.5 % topical cream with perineal applicator APPLY AFFECTED AREA TWICE A DAY FOR 7 DAYS active hydrocortisone acetate 25 mg rectal suppository INSERT 1 SUPPOSITORY TWICE DAILY NEEDED RECTAL PAIN active ibuprofen 200 mg tablet Take 1 tablet every 6 hours by oral route. active indomethacin 25 mg capsule Take 1 capsule (25 mg total) by mouth 3 (three) times a day with meals. active indomethacin 25 mg capsule TAKE 1 CAPSULE BY MOUTH THREE TIMES A DAY active ketoconazole 2 % shampoo PLEASE SEE ATTACHED FOR DETAILED DIRECTIONS active lisinopril 10 mg tablet TAKE 1 TABLET BY MOUTH EVERY DAY (LAST REFILL--PT NEEDS APPOINTMENT PER MD) active lisinopril 10 mg tablet TAKE 1 TABLET BY MOUTH EVERY DAY active meloxicam 15 mg tablet TAKE 1 TABLET (15 MG) BY MOUTH EVERY DAY active methylprednisolone acetate 40 mg/mL suspension for injection Take by injection route. active metoprolol succinate ER 25 mg capsule sprinkle, ext. release 24 hr Take 1 capsule every day by oral route. active metoprolol succinate ER 25 mg tablet,extended release 24 hr TAKE 1 TABLET BY MOUTH EVERY DAY active nystatin 100,000 unit/gram topical ointment APPLY TO AFFECTED AREA TWICE A DAY active One-A-Day Men's 50 Plus active sildenafil 100 mg tablet TAKE 1 TABLET BY MOUTH EVERY DAY active sildenafil 100 mg tablet TAKE 1 TABLET BY MOUTH EVERY DAY active tamsulosin 0.4 mg capsule TAKE 1 CAPSULE BY MOUTH EVERY DAY active tamsulosin 0.4 mg capsule TAKE 1 CAPSULE BY MOUTH EVERY DAY active Valium 5 mg tablet Take 1 tablet twice a day by oral route. active Vitamin C 500 mg tablet Take by oral route. active Ascorbic Acid (VITAMIN C) 100 MG tablet Take 1 tablet (100 mg total) by mouth daily. active ascorbic acid (VITAMIN C) 500 mg tablet Take 1 tablet (500 mg total) by mouth 1 (one) time each day. active aspirin 81 MG chewable tablet Chew 1 tablet (81 mg total) daily. active aspirin 81 mg EC tablet Take 1 tablet (8 1 mg total) by mouth 1 (one) time each day. active aspirin EC 81 MG tablet Take 1 tablet (8 1 mg total) by mouth daily. active atorvastatin (LIPITOR) 40 MG tablet Take 1 tablet (40 mg total) by mouth daily. active ibuprofen (ADVIL,MOTRIN) 200 mg tablet Take 2 tablets (400 mg total) by mouth every 6 hours as needed. active ibuprofen 200 MG tablet Take 2 tablets (400 mg total) by mouth every 6 (six) hours as needed for pain. active indomethacin (INDOCIN) 25 MG capsule Take 1 capsule (25 mg total) by mouth 3 (three) times a day with meals. active lisinopriL (PRINIVIL,ZESTRIL) 10 mg tablet Take 1 tablet (10 mg total) by mouth 1 (one) time each day. active lisinopril (PRINIVIL,ZESTRIL) tablet 10 mg Take 1 tablet (10 mg total) by mouth daily. active Multiple Vitamins-Minerals (One-A-Day Mens 50+) TABS Take 1 tablet by mouth daily. active multivitamin (MULTIPLE VITAMINS ORAL) Take 1 tablet by mouth 1 (one) time each day. active multivitamin (multivitamin) Tab tablet Take 1 tablet by mouth daily. active tamsulosin (FLOMAX) 0.4 mg 24 hr capsule Take 1 capsule (0.4 mg total) by mouth 1 (one) time each day. active tamsulosin (FLOMAX) 0.4 MG CAPS Take 1 capsule (0.4 mg total) by mouth daily. active tamsulosin (FLOMAX) 0.4 MG capsule Take 1 capsule (0.4 mg total) by mouth daily. active vitamin C (ASCORBIC ACID) 500 MG tablet Take 1 tablet (500 mg total) by mouth daily. active vitamin E 100 UNIT capsule Take 1 capsule (100 Units total) by mouth daily. active Problems Problem Status Onset Date Problem Type Date of Resolution Source Chronic right shoulder pain active 2021-08-18 ProblemAct [facility] Inguinal mass active 2014-12-15 ProblemAct [facility] Primary localized osteoarthrosis of left lower leg active 2018-05-21 ProblemAct [facility] Acute medial meniscus tear of left knee active 2017-02-20 ProblemAct [facility] Complete tear of left rotator cuff active 2021-08-18 ProblemAct [facility] Pain of shoulder region active 2024-01-31 ProblemAct [facility] Rupture of rotator cuff of shoulder active 2024-01-31 [facility]Act [facility] Localized, primary osteoarthritis active 2018-05-21 ProblemAct [facility] Acute tear of medial meniscus of left knee active 2017-02-20 ProblemAct [facility] Chronic pain of right upper limb active 2021-08-18 ProblemAct [facility] Osteoarthritis of left knee joint active 2024-01-31 ProblemAct [facility] Full thickness rotator cuff tear active 2021-08-18 ProblemAct [facility] Tear of medial meniscus of knee active 2024-01-31 [facility]Act [facility] Groin mass active 2024-01-31 [facility]Act [facility] Lower back pain active [facility] Pain management active [facility] Osteoarthritis of right knee joint active 2022-08-24 ProblemAct [facility] Osteoarthritis of left knee joint active 2022-08-24 [facility]Act [facility] Pain of bilateral knee joints active 2022-08-24 [facility]Act [facility] Primary gonarthrosis, bilateral active 2024-01-28 [facility]Act [facility] Claudication active 2022-11-09 [facility]Act [facility] Dyslipidemia active 2023-02-19 ProblemAct [facility] NSTEMI (non-ST elevated myocardial infarction) active 2022-11-01 [facility]Act [facility] Bilateral iliac artery aneurysm active 2023-02-19 ProblemAct [facility] High cholesterol active 2022-11-01 ProblemAct [facility] Screening for colon cancer active 2019-02-03 ProblemAct [facility] Tobacco use active 2022-11-09 ProblemAct [facility] Hypertension active 2022-11-01 [facility]Act [facility] Takotsubo cardiomyopathy active 2022-11-09 ProblemAct [facility] Encounters Encounter Type Encounter Reason Primary Diagnosis Location Date Ambulatory Impaired fasting glucose Impaired fasting glucose [facility] 07/03/2024 Ambulatory Low back pain, unspecified Low back pain, unspecified [facility] 05/09/2024 Ambulatory Sacrococcygeal disorders, not elsewhere classified Sacrococcygeal disorders, not elsewhere classified [facility] 02/15/2024 Ambulatory [facility] 02/01/2024 Ambulatory [facility] 02/01/2024 Ambulatory [facility] 01/28/2024 Ambulatory [facility] 01/28/2024 Ambulatory [facility] 01/11/2024 Ambulatory Sacroiliitis, not elsewhere classified Sacroiliitis, not elsewhere classified [facility] 09/28/2023 Ambulatory Sacroiliitis, not elsewhere classified Sacroiliitis, not elsewhere classified [facility] 09/28/2023 Ambulatory [facility] 08/20/2023 Ambulatory [facility] 08/20/2023 Ambulatory [facility] 06/18/2023 Ambulatory [facility] 06/18/2023 Ambulatory Sacroiliitis, not elsewhere classified Sacroiliitis, not elsewhere classified [facility] 05/04/2023 Ambulatory Sacroiliitis, not elsewhere classified Sacroiliitis, not elsewhere classified [facility] 05/04/2023 Ambulatory Takotsubo syndrome Takotsubo syndrome [facility] [employer] [facility] 02/19/2023 Ambulatory [facility] 01/24/2023 Ambulatory [facility] 12/15/2022 Ambulatory Sacroiliitis, not elsewhere classified Sacroiliitis, not elsewhere classified [facility] 12/01/2022 Ambulatory Sacroiliitis, not elsewhere classified Sacroiliitis, not elsewhere classified [facility] 12/01/2022 Ambulatory Peripheral vascular disease, unspecified Peripheral vascular disease, unspecified [facility] 11/09/2022 Ambulatory [facility] 08/24/2022 Ambulatory [facility] 06/07/2022 Care Team Organization Name Specialty Phone Email Start Date End Da te [facility] 07/04/2024 [facility] KRISHNA MATTHEW Primary Care 07/03/2024 [facility], Primary Care [facility] 04/22/2023 [facility] 11/17/2022 10/14/2024 [facility] Odell Johnson [facility]09[facility]202208/02 [facility]
--- OUTSIDE RECORDS SUMMARY | 2025-02-06 09:07 | XMS_ITS | Encounter Summary ---
Author Organization [facility] Address [address] [place] [address] Care Team Providers Care Patent Chemist Name Role Phone Abebe Johnson MD Primary Care Provider Nettie Aponte PA-C Primary Care Provi alex Jemal Kramer MD Unavailable [phone] Encounter Details Date Type Department Care Team (Late st Contact Info) Description 03/29/2023 Scanned Document [facility] [place] [address] [id number] Provider, Yanelis, [address] [place] [address] Social History Tobacco Use Types Packs/Day Years [...] on filedocumented in this encounter Care Teams Patent Chemist Relationship Specialty Start Date End Date Abebe Johnson MD [address] [place] [id number] PCP - General 10/24/18 07/02/24 Nettie Aponte PA-C [address] [place] [address] PCP - General Internal Medicine 07/03/24 Jemal Kramer MD [address] [place] [id number] Consulting Provider Cardiovascular Disease 09/19/24 documented as of this encounter
--- OUTSIDE RECORDS SUMMARY | 2025-02-06 09:07 | XMS_ITS | Data Portability ---
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 Previous x-rays were reviewed together on the computer together. We reviewed the natural history of osteoarthritis. Diagrams and a model were used to demonstrate the areas of arthritic change. The patient understands that symptoms may progress over time requiring further intervention. We discussed in detail available treatment options. We discussed activity modification, especially avoiding impact type activities. Low or no impact activities such as walking, swimming, elliptical and biking were suggested. We discussed the need for an ongoing maintenance flexibility and strengthening program. This should involve the core musculature, the hip, as well as the quadriceps and hamstrings. Intermittent icing 20 minutes off in 3 to 4 times a day may be helpful for control of swelling. A course of Physical Therapy may be helpful with acute symptoms and progress to a targeted home exercise program. Geyo-[id number]-[id number] anti-inflammatory medications with appropriate GI precautions or Tylenol may be helpful in controlling intermittent symptoms of pain. An assistive device such as a cane may be helpful in unloading the joint. The role of bracing was discussed including off loading brace. Advantages, disadvantages, and limitations of braces were discussed. Advantages of weight loss and maintaining ideal weight was discussed. Injections options, including corticosteroids, gel (Hyaluronic Acid), and platelet rich plasma (PRP) injections were reviewed. After discussion, the patient was eager for an injection. Patient tolerated the injection well. Postinjection instructions given. Frequency of injection was reviewed. Patient will follow-up in 3 to 4 weeks if symptoms have not improved, sooner for any complications. All questions answered to their satisfaction. Patient was seen and evaluated by Jarocho Yu PA-C in indirect conjunction with Dr. Pond. The provider agrees with the history, physical examination, recommended tests/diagnostic imaging, and treatment plan. Not available 08/20/2023 12:02:47 01/28/2024 01/28/2024 Symptoms and exa m are consistent with Bilateral Knee Osteoarthritis. Previous x-rays were reviewed together on the computer together. We reviewed the natural history of osteoarthritis. Diagrams and a model were used to demonstrate the areas of arthritic change. The patient understands that symptoms may progress over time requiring further intervention. We discussed in detail available treatment options. We discussed activity modification, especially avoiding impact type activities. Low or no impact activities such as walking, swimming, elliptical and biking were suggested. The role of bracing was discussed including off loading brace. Advantages, disadvantages, and limitations of braces were discussed. Injections options, including corticosteroids, gel (Hyaluronic Acid), and platelet rich plasma (PRP) injections were reviewed. After discussion, the patient was eager for an injection. Patient tolerated the injection well. Postinjection instructions given. Frequency of injection was reviewed. Patient will follow-up in 3 to 4 weeks if symptoms have not improved, sooner for any complications. All questions answered to their satisfaction. Patient was seen and evaluated by Jarocho Yu PA-C in indirect conjunction with Dr. Pond. The provider agrees with the history, physical examination, recommended tests/diagnostic imaging, and treatment plan. [email or web address] Not available 01/28/2024 22:09:49 06/09/2024 06/09/2024 Symptoms and exa m are consistent with Bilateral Knee Osteoarthritis. The underwent previous corticosteroid injection with good relief. Symptoms have again returned. Previous x-rays were reviewed together on the computer. We reviewed the natural history of osteoarthritis. Diagrams and a model were used to demonstrate the areas of arthritic change. The patient understands that symptoms may progress over time requiring further intervention. We discussed in detail available treatment options. We discussed activity modification, especially avoiding impact type activities. Low or no impact activities such as walking, swimming, elliptical and biking were suggested. After discussion, the patient was eager for an injection. Patient tolerated the injection well. Postinjection instructions given. Frequency of injection was reviewed. Patient will follow-up in 3 to 4 weeks if symptoms have not improved, sooner for any complications. All questions answered to their satisfaction. Patient was seen and evaluated by Jarocho Yu PA-C in indirect conjunction with Dr. Pond. The provider agrees with the history, physical examination, recommended tests/diagnostic imaging, and treatment plan. Not available 06/09/2024 14:49:49 09/16/2024 09/16/2024 Symptoms and exa m are consistent with Bilateral Knee Osteoarthritis. The underwent previous corticosteroid injection with good relief. Symptoms have again returned. Previous x-rays were reviewed together on the computer. We reviewed the natural history of osteoarthritis. Diagrams and a model were used to demonstrate the areas of arthritic change. The patient understands that symptoms may progress over time requiring further intervention. We discussed in detail available treatment options. We discussed activity modification, especially avoiding impact type activities. Low or no impact activities such as walking, swimming, elliptical and biking were suggested. After discussion, the patient was eager for an injection. Patient tolerated the injection well. Postinjection instructions given. Frequency of injection was reviewed. Patient will follow-up in 3 to 4 weeks if symptoms have not improved, sooner for any complications. All questions answered to their satisfaction. Patient was seen and evaluated by Jarocho Yu PA-C in indirect conjunction with Dr. Pond. The provider agrees with the history, physical examination, recommended tests/diagnostic imaging, and treatment plan. [email or web address] Not available 09/16/2024 15:13:06 12/10/2024 12/10/2024 Symptoms and exa m are consistent with Bilateral Knee Osteoarthritis. The underwent previous corticosteroid injection with good relief. Symptoms have again returned. Previous x-rays were reviewed together on the computer. We reviewed the natural history of osteoarthritis. Diagrams and a model were used to demonstrate the areas of arthritic change. The patient understands that symptoms may progress over time requiring further intervention. We discussed in detail available treatment options. We discussed activity modification, especially avoiding impact type activities. Low or no impact activities such as walking, swimming, elliptical and biking were suggested. After discussion, the patient was eager for an injection. Patient tolerated the injection well. Postinjection instructions given. Frequency of injection was reviewed. Patient will follow-up in 3 to 4 weeks if symptoms have not improved, sooner for any complications. We discussed hyaluronic acid as another option which she will consider in the future if cortisone does not offer relief. All questions answered to their satisfaction. Patient was seen and evaluated by Jarocho Yu PA-C in indirect conjunction with Dr. Pond. The provider agrees with the history, physical examination, recommended tests/diagnostic imaging, and treatment plan. [email or web address] Not available 12/10/2024 17:25:01 Plan of Treatment Reminders Order Date Submit Date Provider Last Modified By Organization Details Last Modified Time Details Appointments None recorded. Lab None recorded. Referral None recorded. Procedures None recorded. Surgeries None recorded. Imaging XR, knee, 4 or more view 2023 024 [place] [address] [facility], [address], [address], [place], [address], 16:34:01 XR, knee, 4 or more view 2023 024 [place] [address] [facility], [address], [address], [place], [address], 4 16:34:01 Medication Orders lidocaine (PF) 100 mg/5 mL (2 %) injection syringe [address]/Pharmacy #[id number], [address] [place], [address], 5 15:46:30 triamcinolo ne acetonide 40 mg/mL suspension for injection [address]/Pharmacy #1544, [address] [place], [address], 5 15:46:30 lidocaine (PF) 100 mg/5 mL (2 %) injection syringe [address]/Pharmacy #1544, [address] [place], [address], 5 15:15:46 triamcinolo ne acetonide 40 mg/mL suspension for injection [address]/Pharmacy #1544, [address] [place], [address], 5 15:15:46 lidocaine (PF) 100 mg/5 mL (2 %) injection syringe [address]/Pharmacy #1544, [address] [place], [address], 5 17:20:24 triamcinolo ne acetonide 40 mg/mL suspension for injection [address]/Pharmacy #1544, [address] [place], [address], 5 17:20:24 lidocaine (PF) 100 mg/5 mL (2 %) injection syringe [address]/Pharmacy #1544, [address] [place], [address], 4 16:34:01 triamcinolo ne acetonide 40 mg/mL suspension for injection [address]/Pharmacy #1544, [address] [place], [address], 4 16:34:01 lidocaine (PF) 100 mg/5 mL (2 %) injection syringe 2023 024 [facility] [address] [facility]/Pharmacy #1544, [address] [place], [address], 4 16:52:24 triamcinolo ne acetonide 40 mg/mL suspension for injection 2023 024 [facility] [address] [facility]/Pharmacy #1544, [address] [place], [address], 4 16:52:24 Patient TargetsNo targets recorded. Patient Instructions Encounter Date Encounter Id Patient Instructions Last Modified By Organization Details Last Modified Time 01/28/2024 [id number] Radiographs: 5 views of Both knee(s) were obtained in the [place] office on 01/28/24 including AP, Riggs, lateral (weightbearing), and sunrise. X-rays demonstrated normal bony mineralization. Joint spaces decrease medially No evidence of acute injury or fracture. Findings: Osteoarthritis Both Knees. X-ray interpretation by: Jarocho Yu PA-C [email or web address] Not available 01/28/2024 22:12:17 Reason for Referral None Reported. Problems Name Problem SNOMED Code Status Onset Date Resolution Date Notes Provider Name and Address Organization Details Recorded Time Groin mass 299913384 Active 2014 Inguinal mass Not Available [facility] 5 00:44:04 Acute tear of medial meniscus of left knee 69958566985 378947 Active 2016 Acute medial meniscus tear of left knee Not Available [facility] 5 00:44:04 Localized , primary osteoarth ritis 568712164 Active 2018 Primary localized osteoarth rosis of left lower leg Not Available [facility] 5 00:44:05 Chronic pain of right upper limb 31463377330 373292 Active 2021 Chronic right shoulder pain Not Available [facility] 5 00:44:03 Full thickness rotator cuff tear 039376376 Active 2021 Complete tear of left rotator cuff Not Available [facility] 5 00:44:04 Osteoarth ritis of left knee joint 66672858008 9109 Active [address] [facility], [place], [address] , [place] [facility] 3 15:03:27 Osteoarth ritis of right knee joint 71938180579 9100 Active [address] [facility], [place], [address] , [place] [facility], [facility] 3 15:03:33 Pain of bilateral knee joints 85195896564 4104 Active [address] [place] [address], [place], [address] , [place] [facility], [facility] 3 15:03:40 Primary gonarthro sis, bilateral 358432029 Active [address] [facility], [place], [address] , [place] [facility] 5 17:24:36 Problem Notes None recorded. Procedures Surgical History Date Name Laterality Status Provider Name and Address Organization Details Recorded Time 5 AMISH Knee Injection completed [address], [place], [address], [place] [facility] 12/10/2024 17:24:23 5 AMISH Knee Injection completed [address], [place], [address], [place] [facility], [facility] 09/16/2024 15:13:13 5 AMISH Knee Injection completed [address] [facility], [place], [address], [place] [facility], [facility] 06/09/2024 14:49:25 4 AMISH Knee Injection completed [address], [place], [address], [place] [facility], [facility] 01/28/2024 22:07:51 4 AMISH Knee Injection completed JAROCHO YU PA-C [address], [place], [address], [place] [facility], [facility] 08/20/2023 12:01:56 3 AMISH Knee Injection completed JAROCHO YU PA-C [address], [place], [address], [place] [facility], [facility] 08/24/2022 15:04:01 [facility] eye [facility] 01/28/2024 13:53:51 hernia repair completed [facility], P 01/28/2024 13:53:56 Imaging Results None recorded. Procedure Notes None recorded. Medical Equipment None Reported. Allergies No known drug allergies Medications Name Sig Start Date Stop Date Status Note LastModified by Organization Details LastModified Time amoxicillin 500 mg capsule TAKE 1 CAPSULE BY MOUTH 3 TIMES A DAY UNTIL FINISHED 01/27 completed Not Available Not Available Not Available atorvastati n 40 mg tablet TAKE 1 TABLET BY MOUTH EVERY DAY active Not Available Not Available No t Available acetaminoph en 325 mg tablet Take 650 mg by mouth daily. 03/15 completed Not Available Not Available Not Available ketoconazol e 2 % shampoo PLEASE SEE ATTACHED FOR DETAILED DIRECTION S 01/27 completed Not Available Not Available Not Available nystatin 100,000 unit/gram topical ointment APPLY TO AFFECTED AREA TWICE A DAY 01/27 completed Not Available Not Available Not Available tizanidine 4 mg tablet Take 4 mg by mouth. 09/08 completed Not Available Not Available Not Available hydrocodone 5 mg-acetamin ophen 325 mg tablet TAKE 1 TABLET BY MOUTH EVERY 4 TO 6 HOURS NEEDED 01/27 completed Not Available Not Available Not Available meloxicam 15 mg tablet TAKE 1 TABLET (15 MG) BY MOUTH EVERY DAY 01/27 completed Not Available Not Available Not Available clobetasol 0.05 % topical cream 08/28 completed Not Available Not Available Not Available aspirin 81 mg tablet,griselda yed release Take 1 tablet (81 mg total) by mouth daily. active Not Available Not Available No t Available sildenafil 100 mg tablet TAKE 1 TABLET BY MOUTH EVERY DAY active Not Available Not Available No t Available acyclovir 800 mg tablet 08/28 completed Not Available Not Available Not Available hydrocortis one acetate 25 mg rectal suppository INSERT 1 SUPPOSITO RY TWICE DAILY NEEDED RECTAL PAIN active Not Available Not Available No t Available oxycodone-a cetaminophe n 5 mg-325 mg tablet Take 1 tablet by mouth 3 (three) times a day as needed. 09/12 completed Not Available Not Available Not Available hydrocortis one 2.5 % topical cream with perineal applicator APPLY AFFECTED AREA TWICE A DAY FOR 7 DAYS 01/27 completed Not Available Not Available Not Available amoxicillin 875 mg tablet TAKE 1 TABLET BY MOUTH EVERY 12 HOURS UNTIL FINISHED 01/27 completed Not Available Not Available Not Available methocarbam ol 750 mg tablet Take 1 tablet (750 mg total) by mouth 2 (two) times a day as needed. For muscle spasm 03/31 completed Not Available Not Available Not Available tamsulosin 0.4 mg capsule Take 1 capsule (0.4 mg total) by mouth daily. active Not Available Not Available No t Available betamethaso ne valerate 0.1 % topical cream APPLY AFFECTED AREA 3 TIMES A DAY NEEDED FOR RASH 01/27 completed Not Available Not Available Not Available triamcinolo ne acetonide 40 mg/mL suspension for injection Take 80 mg by injection route. 2024 active Not Available Not Available Not Avai lable cephalexin 500 mg capsule TAKE 1 CAPSULE BY MOUTH TWICE A DAY active Not Available Not Available No t Available methylpredn isolone acetate 40 mg/mL suspension for injection 2021 active Not Available Not Available Not Avai lable lisinopril 10 mg tablet Take 1 tablet (10 mg total) by mouth daily. active Not Available Not Available No t Available indomethaci n 25 mg capsule Take 1 capsule (25 mg total) by mouth 3 (three) times a day with meals. active Not Available Not Available No t Available ascorbic acid (vitamin C) 500 mg chewable tablet Take 1 tablet (500 mg total) by mouth daily. active Not Available Not Available No t Available ibuprofen 200 mg tablet Take 2 tablets (400 mg total) by mouth every 6 (six) hours as needed for pain. 09/08 completed Not Available Not Available Not Available halobetasol propionate 0.05 % topical cream APPLY AFFECTED AREA TWICE A DAY NEEDED. DO NOT USE MORE THAN 14 DAYS AT A TIME active Not Available Not Available No t Available lisinopril 5 mg tablet 11/21 completed Not Available Not Available Not Available metoprolol succinate ER 25 mg tablet,exte nded release 24 hr TAKE 1 TABLET BY MOUTH EVERY DAY active Not Available Not Available No t Available diazepam 5 mg tablet PLEASE SEE ATTACHED FOR DETAILED DIRECTION S 01/27 completed Not Available Not Available Not Available Cialis 5 mg tablet TAKE 1 TABLET BY MOUTH EVERY DAY 08/28 completed Not Available Not Available Not Available vitamin E phosphate 400 Unit capsule Take 400 Units by mouth daily. 11/14 completed Not Available Not Available Not Available lidocaine (PF) 10 mg/mL (1 %) injection solution 11/21 completed Not Available Not Available Not Available lidocaine (PF) 20 mg/mL (2 %) injection solution 03/28 completed Not Available Not Available Not Available sodium,pota ssium,mag sulfates 17.5 gram-3.13 gram-1.6 gram oral soln Take two 177 mL bottles as directed 03/15 completed Not Available Not Available Not Available lidocaine (PF) 100 mg/5 mL (2 %) injection syringe Take 8 mL by injection route. 2024 active Not Available Not Available Not Avai lable hydrocortis one 2.5 % rectal cream with applicator 04/08 completed Not Available Not Available Not Available Vitals Date Recorded Body height Body mass index (BMI) Body weight Provider Name and Address Organization Details Last Updated DateTime 06/09/2024 167.64 cm 23.4 kg/m2 [address].[address] [place] [facility] 06/09/2024 14:15:34 Date Recorded Body height Body mass index (BMI) Body weight Provider Name and Address Organization Details Last Updated DateTime 09/16/2024 167.64 cm 23.3 kg/m2 [address]1599.[address] [place] [facility] 09/16/2024 10:28:24 Date Recorded Body mass index (BMI) Body height Body weight Respiratory rate Heart rate Body temperature Oxygen saturation Oxygen saturation in Arterial blood by Pulse oximetry Systolic And Diastolic Provider Name and Address Organization Details Last Updated DateTime 22.6 kg/m2 167.6 cm 80206 g 18 /min 51 /min 96.8 [degF] 100 % 100 % 119/56 mm[Hg] Not Available [facility] 23:33:37 Date Recorded Body height Body mass index (BMI) Body weight Provider Name and Address Organization Details Last Updated DateTime 12/10/2024 167.64 cm 23.2 kg/m2 [address]99.[address] [place] [facility] 12/10/2024 13:22:35 Date Recorded Body height Body mass index (BMI) Body weight Provider Name and Address Organization Details Last Updated DateTime 01/28/2024 167.64 cm 23.4 kg/m2 38362.[address] [place] [facility] 01/28/2024 13:52:13 Social History Question Answer Notes LastModified by [facility] Details LastModified Time Tobacco Smoking Status Current Every Day Smoker Nathaly De La Cruz jann[place], [place] - [facility] 01/28/2024 13:53:27 How Much Tobacco Do You Smoke? 0.5 PPD Information not available 01/28/2024 Sex: Unknown Functional Status Question Answer Note LastModified by [facility] Details LastModified Time How many times per week do you consume alcohol? 5-7 times per week pt states: 1 drink per day Information not available 01/28/2024 Do you use any illicit or recreational drugs? No Information not available 01/28/2024 Do you or have you ever used any other forms of tobacco or nicotine? No Information not available 01/28/2024 What is your level of alcohol consumption? Moderate Information not available 01/28/2024 Mental Status None recorded. Family History Nothing Reported. Medical History Condition Response Gout Y Past Encounters Encounter ID Performer Location Encounter Start Date Encounter Closed Date Diagnosis/Indication Diagnosis SNOMED-CT Code Diagnosis ICD10 Code Diagnosis IMO Codes Diagnosis Note [id number] [address] [address] 08/24/2022 14:25:28 08/24/2022 15:22:03 Pain of bilateral knee joints 6871816259 19683 M25.562 Osteoarthr itis of left knee joint 8118961310 54471 M17.12 Osteoarthr itis of right knee joint 1430145082 70398 M17.11 [id number] PATY MEN[address]Z [address] [address] 08/20/2023 11:28:50 08/20/2023 12:13:27 Osteoarthritis of left knee joint 4381555804 28371 M17.12 Osteoarthr itis of right knee joint 8679974859 99084 M17.11 Primary go narthrosis, bilateral 983282839 M17.0 Additional diagnosis detail: Primary osteoarthr itis of both knees [id number] [address] M[address] [address] 01/28/2024 13:03:06 01/28/2024 14:17:45 Pain of right knee joint 5092341928 45667 M25.561 367034 Pain of le ft knee region 5652656252 35566 M25.562 [id number] Primary go narthrosis, bilateral 537764253 M17.0 [id number] Additional diagnosis detail: Primary osteoarthr itis of both knees Osteoarthr itis of left knee joint 9152989817 54392 M17.12 Osteoarthr itis of right knee joint 4207532526 67218 M17.11 [id number] [address] 06/09/2024 14:08:57 06/09/2024 15:50:03 Pain of bilateral knee joints 0030492565 06979 M25.562 [id number] PATY MENDEZ [address] [address] 09/16/2024 10:17:45 09/16/2024 11:05:29 Primary gonarthrosis, bilateral 591487416 M17.0 [id number] Additional diagnosis detail: Primary osteoarthr itis of both knees [id number] JAROCHO YU PA-C [place] [address] [facility] [address] [place] [address] 12/10/2024 12:52:18 12/10/2024 13:23:40 Primary gonarthrosis, bilateral 179212917 M17.0 [id number] Additional diagnosis detail: Primary osteoarthr itis of both knees Health Concerns Section Related Observation LastModified by Organization Detai ls LastModified Time None Recorded Concern Status LastModified by Organization Details LastModified Time None Recorded Advance Directives Directive None Recorded Payers Insurance Date Sequence Insurance Name Policy Number Policy Field Covered Member ID Field Member ID Guarantor Name 12/07/2024 2 [place] [id number] Luis Herr [id number] Luis Herr 12/07/2024 1 [place] Luis Herr [id number] Luis Herr Notes Date Note Type Note Provider Name and Address Organization Details Recorded Time 08/20/2023 text/html ROS as noted in the HPI Patient is a 77-year-old male who presents today with recurrent bilateral knee pain. He has done well with corticosteroid injections in the past. Last injection was in July 2022. Symptoms have been increasing over the last few weeks. He is looking for repeat injections if possible. No change in past medical history. [address], [place], [address], [place] [facility], 08/20/2023 12:04:03 01/28/2024 text/html ROS as noted in the HPI Patient is a 77-year-old male who presents today with recurrent bilateral knee pain. He has done well with corticosteroid injections in the past. Symptoms have been increasing over the last few weeks. He is looking for repeat injections if possible. No change in past medical history. [address], [place], [address], [place] [facility] 01/28/2024 22:12:29 06/09/2024 text/html ROS as noted in the HPI Patient is a 78-year-old male who returns today for follow-up of bilateral knee osteoarthritis. He is received injections in the past with good relief. Symptoms have been increasing, left greater than right. He is eager for repeat injection on today's visit. [address], [place], [address], [facility] - [facility] 06/09/2024 14:50:25 09/16/2024 text/html ROS as noted in the HPI Patient is a 78-year-old male who returns today for follow-up of bilateral knee osteoarthritis. He is received injections in the past with good relief. Symptoms have been increasing, left greater than right. He is eager for repeat injection on today's visit. [address], [place], [address], [facility] 09/16/2024 15:16:56 12/10/2024 text/html Patient is a 79-year-old male who presents today with bilateral knee osteoarthritis. He has received injections in the past with good relief. Last injection was in August 2024. He has at least 2 months of relief before symptoms slowly start returning. [address], [place], [address], [facility] - [facility] 12/10/2024 17:25:54
--- OUTSIDE RECORDS SUMMARY | 2025-02-06 09:07 | XMS_ITS | Encounter Summary ---
Author Organization [facility] Address [address] [place] [address] Care Team Providers Care Power Plant Operator Apprentice Name Role Phone Abebe Johnson MD Primary Care Provider [phone] Nettie Aponte PA-C Primary Care Provi alex Jemal Kramer MD Unavailable [phone] Encounter Details Date Type Department Care Team (Late st Contact Info) Description 03/15/2023 Scanned Document [facility] [place] [address] [address] Provider, Cardiology Social History Tobacco Use Types Packs/Day Years [...] on filedocumented in this encounter Care Teams Power Plant Operator Apprentice Relationship Specialty Start Date End Date Abebe Johnson MD [address] [place] [address] PCP - General 10/24/18 07/02/24 Nettie Aponte PA-C [address] [place] [address] PCP - General Internal Medicine 07/03/24 Jemal Kramer MD [address] [place] [address] Consulting Provider Cardiovascular Disease 09/19/24 documented as of this encounter
--- OUTSIDE RECORDS SUMMARY | 2025-02-06 09:07 | XMS_ITS | Clinical Summary ---
Author Organization [facility] Address [address] [place] [address] Phone Care Team Providers Care Hotel Maintenance Worker Name Role Phone Abebe Johnson MD Primary Care Provider [phone] Allergies No known active allergies Medications multivitamin (MULTIPLE VITAMINS ORAL) Take 1 tablet by mouth 1 (one) time each day. Active ascorbic acid (VITAMIN C) 500 mg tablet Take 1 tablet (500 mg total) by mouth 1 (one) time each day. Active aspirin 81 mg EC tablet Take 1 tablet (81 mg total) by mouth 1 (one) time each day. Active atorvastatin (LIPITOR) 40 mg tablet Take 1 tablet (40 mg total) by mouth 1 (one) time each day. 06/20/2017 Active diazePAM (VALIUM) 5 mg tablet Take 1 tablet (5 mg total) by mouth every 6 (six) hours if needed. 08/25/2022 Active ibuprofen (ADVIL,MOTRIN) 200 mg tablet Take 2 tablets (400 mg total) by mouth every 6 hours as needed. Active lisinopriL (PRINIVIL,ZESTR IL) 10 mg tablet Take 1 tablet (10 mg total) by mouth 1 (one) time each day. Active metoprolol succinate (TOPROL-XL) 25 mg 24 hr tablet Take 1 tablet (25 mg total) by mouth 1 (one) time each day. 03/31/2016 Active tamsulosin (FLOMAX) 0.4 mg 24 hr capsule Take 1 capsule (0.4 mg total) by mouth 1 (one) time each day. Active Active Problems No known active problems Surgical History Surgery Date Site/Laterality Comments UMBILICAL HERNIA REPAIR PROCEDURE:UMBILICAL HERNIA REPAIR EYE SURGERY Left PROCEDURE:EYE SURGERY CARDIAC CATHETERIZATION PROCEDURE:CARDIAC CATHETERIZATION OTHER SURGICAL HISTORY PROCEDURE:SI joint injection HERNIA REPAIR 2021 Right PROCEDURE:INGUINAL HERNIA REPAIR;COMMENT:Procedure: RIGHT LAPAROSCOPY REPAIR HERNIA INGUINAL; Surgeon: Kevon Dsouza MD; [facility]; Service: General; Laterality: Right; HERNIA REPAIR 11/25/2021 Right PROCEDURE:INGUINAL HERNIA REPAIR;COMMENT:Procedure: RIGHT LAPAROSCOPY REPAIR HERNIA INGUINAL; Surgeon: Kevon Dsouza MD; Location: [facility]; Service: General; Laterality: Right; Medical History Medical History Date Comments Kidney stones DX:Kidney stones Chronic back pain DX:Chronic eladia k pain Erectile dysfunction DX:Erectile dysfunction HTN (hypertension) DX:HTN (hyper tension) Coronary artery disease DX:Coron gregor artery disease Rotator cuff tear, left DX:Rotat or cuff tear, left Inguinal hernia DX:Inguinal chino ia HL (hearing loss) DX:HL (hearing loss) Family History Medical History Relation Name Comments Leukemia Father Heart disease Mother Relation Name Status Comments Father Mother Social History Tobacco Use Types Packs/Day Years Used Date Smoking Tobacco: Every Day Cigarettes Smokeless Tobacco: Never Alcohol Use Standard Drinks/Week Comments Yes 0 (1 standard drink = 0.6 oz pur e alcohol) weekly Transportation Answer Date Recorded Has the lack of transportati on kept you from meetings, work, or from getting things needed for daily living? No Has the lack of transportati on kept you from medical appointments or from getting medications? No 05/01/2024 Living Situation Answer Date Recorded What is your living situation? Unrecognized valu e 05/01/2024 Sex and Gender Information Value Date Recorded Sex Assigned at Male 02/08/2024 3:30 PM EST Legal Sex Male 4:40 AM EST Gender Identity Male 02/08/2024 3:30 PM EST Sexual Orientation Straight 02/08/2024 3: 30 PM EST Obstetrics History Last Filed Vital Signs Vital Sign Reading Time Taken Comments Blood Pressure 145/65 05/09/2024 10:41 AM EST Pulse 60 05/09/2024 10:41 AM EST Temperature 36.6 C (97.9 F) 05/09/2024 10:41 AM EST Respiratory Rate 15 05/09/2024 10:41 AM EST Oxygen Saturation 98% 05/09/2024 10:41 AM EST Inhaled Oxygen Concentration - - Weight 65.8 kg (145 lb) 05/09/2024 9:35 AM EST Height 167.6 cm (5' 6 ) 05/09/2024 9:35 AM EST Body Mass Index 23.4 05/09/2024 9:35 AM EST Plan of Treatment Health Maintenance Due Date Last Done Comments Pneumococcal Vaccine: 50+ Ye ars (1 of 2 - PCV) 1965 Zoster Vaccines (1 of 2) 1996 RSV Immunization Adult Patie nts (1 - 1-dose 75+ series) 2021 DTaP,Tdap,and Td Vaccines (2 - Td or Tdap) 01/15/2022 01/16/2012 Cholesterol Screening (Lipid Panel) 03/05/2022 Hepatitis C Screening 03/05/2022 Lung Cancer Screening (Low D ose CT) 03/05/2022 Medicare Annual Wellness Visit 03/05/2022 Hypertension/CHF/CAD Annual BMP Blood Test 02/15/2024 11/03/2021 Depression Screening 04/02/2024 COVID-19 Vaccine ( - 2023-2 5 season) 2024 Influenza Vaccine (#1) 2024 Social Influencers of Health Screening 05/01/2025 05/01/2024 Falls Risk Assessment 05/09/2025 05/09/2024 HIB Vaccines Aged Out No longer eligi ble based on patient's age to complete this topic HPV Vaccines Aged Out No longer eligi ble based on patient's age to complete this topic Hepatitis A Vaccines Aged Out No long er eligible based on patient's age to complete this topic Hepatitis B Vaccines Aged Out No long er eligible based on patient's age to complete this topic IPV Vaccines Aged Out No longer eligi ble based on patient's age to complete this topic MMR Vaccines Aged Out No longer eligi ble based on patient's age to complete this topic Meningococcal ACWY Vaccine Aged Out N o longer eligible based on patient's age to complete this topic Meningococcal B Vaccine Aged Out No l onger eligible based on patient's age to complete this topic RSV Immunization Patients Un alex 20 months Aged Out No longer eligible b ased on patient's age to complete this topic Varicella Vaccines Aged Out No longer eligible based on patient's age to complete this topic Medical Devices Implanted Type Area Senior Test Analyst Device Identifier Shelf Expiration Date Model / Serial / Lot Mesh 3d Max 4.3x6.3 Rt Lrg Dimensional Prefrm Rt Ster No [id number]-Davl [id number] Implanted:Qty: 1 on 11/25/2021 by Kevon Feliz MD Implants Right: Inguinal CR BARD - DAVOL DIV 09/27/2025 [id number] / / [id number] Insurance MEDICARE FOR[facility]LY [facility]) Care Teams Hotel Maintenance Worker Relationship Specialty Start Date End Date Abebe Johnson MD [address] [place] [id number] PCP - General Internal Medicine 02/04/14
--- OUTSIDE RECORDS SUMMARY | 2025-02-06 09:07 | XMS_ITS | Encounter Summary ---
Author Organization [facility] Address [address] [place] [address] Care Team Providers Care Retail Sales Teammate Name Role Phone Nettie Aponte PA-C Primary Care Provi alex Jemal Kramer MD Unavailable [phone] Encounter Details Date Type Department Care Team (Late st Contact Info) Description 09/29/2024 Scanned Document [address] [id number] Primary Care, Scan Social History Tobacco Use Types Packs/Day Years [...] on filedocumented in this encounter Care Teams Retail Sales Teammate Relationship Specialty Start Date End Date Nettie Aponte PA-C [address] [place] [address] PCP - General Internal Medicine 07/03/24 Jemal Kramer MD [address] [place] [address] Consulting Provider Cardiovascular Disease 09/19/24 documented as of this encounter
--- OUTSIDE RECORDS SUMMARY | 2025-02-06 09:07 | XMS_ITS | Clinical Summary ---
Author Organization [address] Address [address] [place] [id number] Care Team Providers Care Glass Forming Crew Member Name Role Phone Abebe Johnson MD Primary Care Provider [phone] Medications ascorbic acid, vitamin C, (VITAMIN C) 100 mg tablet Take 1 tablet (100 mg total) by mouth daily. Active aspirin 81 mg chewable tablet Take 1 tablet (81 mg total) by mouth daily. Active diazePAM (VALIUM) 5 mg tablet Take 1 tablet (5 mg total) by mouth nightly as needed for anxiety. Active lisinopriL (PRINIVIL,ZESTR IL) 10 mg tablet Take 1 tablet (10 mg total) by mouth daily. Active metoprolol succinate XL (TOPROL-XL) 25 mg 24 hr tablet Take 1 tablet (25 mg total) by mouth daily. Take with or immediately following a meal. Active multivitamin tablet Take 1 tablet by mouth daily. Active tamsulosin (FLOMAX) 0.4 mg 24 hr capsule Take 1 capsule (0.4 mg total) by mouth daily. Active tiZANidine (ZANAFLEX) 4 mg capsule Take 1 capsule (4 mg total) by mouth every 8 (eight) hours. Active vitamin E, dl,tocopheryl acet, (VITAMIN E, DL, ACETATE,) 100 UNIT capsule Take 1 capsule (100 Units total) by mouth daily. Active Social History Tobacco Use Types Packs/Day Years Used Date Smoking Tobacco: Every Day Cigarettes 1 40 Tobacco Cessation:Ready to Q uit: No; Counseling Given: Yes Comments:Reports is working on cutting back, trying to keep it to 1/2 ppd currently, given handout with smoking cessation resources at today's initial PAD SET program visit Sex and Gender Information Value Date Recorded Sex Assigned at Not on file Legal Sex Male 7:48 PM EST Gender Identity Not on file Sexual Orientation Not on file Last Filed Vital Signs Vital Sign Reading Time Taken Comments Blood Pressure 98/60 04/03/2023 11:26 AM EST Pulse - - Temperature - - Respiratory Rate - - Oxygen Saturation - - Inhaled Oxygen Concentration - - Weight 66.9 kg (147 lb 8 oz) 04/03/2023 11:26 AM EST Height 165.1 cm (5' 5 ) 04/03/2023 11:26 AM EST Body Mass Index 24.55 04/03/2023 11:26 AM EST Plan of Treatment Health Maintenance Due Date Last Done Comments HIV screening 11/23/1958 Hepatitis C screening 1964 Pneumococcal Vaccine (50+ ye ars) (1 of 2 - PCV) 1965 Tetanus adult (Td q 10,TDAP once) 1966 Lipid disorder screening 1986 Diabetes screening 11/23/1991 Shingles vaccine (Shingrix) (1 of 2 - Shingrix (RZV) 2 Dose Standard Series) 1996 RSV Immunization (1 - 1-dose 75+ series) 2021 Influenza vaccine 10/31/2024 Covid-19 vaccine series ( - 2024- season) 2024 Colon cancer screening, Colonoscopy Discontinued Meningococcal B Vaccine Aged Out No l onger eligible based on patient's age to complete this topic Meningococcal Vaccine Aged Out No edmar regina eligible based on patient's age to complete this topic Insurance MEDICARE [place] on file [facility] MEDICARE MEDICAID [place] on file [facility] MEDICARE MEDICAID [place] on file [facility] Care Teams Glass Forming Crew Member Relationship Specialty Start Date End Date Abebe Johnson MD [address] [place] [phone] PCP - General Internal Medicine 03/02/23
== END 2025-02-06 09:05 | disposition home or self-care (01) ==
DX: L03.116 Cellulitis of left lower limb (principal)

== ENCOUNTER → 2025-02-06 08:35 | Outpatient (BNVA) | payer MEDICARE, SELFPAY | DX: L03.116 Cellulitis of left lower limb (principal) | CPT/HCPCS: 99212 ==

== ENCOUNTER 2025-02-17 07:37 | Outpatient (AMB) | payer MEDICARE, SELFPAY ==
--- NOTE | 2025-02-17 07:52 | AM.OFFWIN_ITS ---
Intake Vital Signs 02/17/25 07:53 Height 5 ft 6 in Weight 145 lb BMI 23.4 BP 122/76 Blood Pressure Location Lt brachial Position Sitting Pulse 55 Pulse Source Pulse Oximeter Temp 98.6 F Temp Source Oral Pulse Oximetry (%) 97 Oxygen Delivery Method Room Air Intake Visit Reasons: EP-lt leg issue, follow up from visit 02/06/25 Intake Note: Patient presents c/o left leg issue - follow up visit from 02/06/25. Patient completed Cephalexin ABX Patient Tobacco Use Status: Current everyday Tobacco user Allergies No Known Allergies Allergy (Verified 02/17/25 07:53) HPI HPI Comments History of Present Illness Details History of Present Illness - The patient is a 79-year-old male pres enting with a wound on his left leg. - The patient sustained a cut on his artie t approximately 10 days ago, which was treated with Keflex prescribed by this clinic. - The wound was initially open and wide, but now is scabbed over. - The patient completed a 7 day course o f Keflex as directed and has been advised to apply Aquaphor to aid in healing. - The patient does not have a history of diabetes mellitus. - Denies fevers, drainage, warmth Review of Systems - Integumentary: Reports tingling sensat ion in the foot, denies warmth or purulent discharge. All systems reviewed and are unremarkable except as noted in HPI Physical Exam General: Cooperative, healthy appearing, comfortable, no acute distress and well developed Orientation: Patient oriented x3 Limitations: No limitations Head: Normal to inspection Ears: Hearing grossly normal bilaterally Nose: Normal External nose present Face and sinus: Normal facial exam Eyes: Appearance normal, both eyes and all related structures Neck: Normal visual inspection and Yes full ROM Respiratory: Normal respiratory effort and able to speak in complete sentences. Skin: No rashes or lesions noted. Neuro: Patient oriented x3 Extremities: Normal to inspection, except for anterior left leg with 1.5cm scab with surrounding slight erythema, no warmth or drainage. [facility] Social History Patient Tobacco Use Status: Current everyday Tobacco user Physical Exam Vital Signs: Last Vital Signs Temp 98.6 F 02/17/25 07:53 Pulse 55 02/17/25 07:53 BP 122/76 02/17/25 07:53 Pulse Ox 97 02/17/25 07:53 Oxygen Delivery Method Room Air 02/17/25 07:53 BMI result Body Mass Index 23.4 Assessment & Plan Assessment & Plan (1) Leg wound, left: Code(s): S81.802A - Unspecified open wound, left lower leg, initial encounter Qualifiers: Encounter type: initial encounter Qualified Code(s): S81.802A - Unspecified open wound, left lower leg, initial encounter Plan: Plan Patient was informed and verbally consented to the use of an ambient scribe for clinic note documentation during this visit. Left leg wound - Continue monitoring for signs of infection such as fevers, increased redness, warmth, or purulent discharge. - Apply Aquaphor twice daily to maintain moisture and promote healing. - Allow soap and water to cleanse the area during showers, avoid occlusive dressings. - Advise patient to seek medical attention if symptoms of infection develop. Coding Level of Care Code New Pt Level 3 (74044) Diagnoses Wound of left lower extremity, initial encounter S81.802A Encounter type: initial encounter
[2025-02-17 07:53] VITALS: BP 122/76; PULSE 55; TEMP 37; O2SAT 97; BMI 23.4
== END 2025-02-17 08:22 | disposition home or self-care (01) ==
PROVIDERS: Visit Provider Physician Assistant
DX: S81.802A Unspecified open wound, left lower leg, initial encounter (principal)

== ENCOUNTER → 2025-02-17 07:37 | Outpatient (BNVA) | payer MEDICARE, SELFPAY | PROVIDERS: Visit Provider Physician Assistant | DX: S81.802D Unspecified open wound, left lower leg, subsequent encounter (principal) | CPT/HCPCS: 99202 ==